=== PATIENT | female | born 1970 | race Caucasian/White ===

== ENCOUNTER 2017-12-01 14:59 | Emergency (ER) | payer MEDICARE, OTHER ==
[2017-12-01] MEDS ORDERED: MECLIZINE HCL 25 MG TABLET PO ONE (15:24)
[2017-12-01] MEDS ORDERED: MECLIZINE HCL 25 MG TABLET ONE (15:37)
[2017-12-01 15:42] LABS: Hematocrit 40.2 % (37.0-47.0); Hemoglobin 13.1 gm/dL (12.5-16.0); Mean Cell Volume 86.5 fl (78-100); Mean Corpuscular Hemoglobin 28.2 pg (27-31); Mean Corpuscular Hgb Conc 32.6 g/dl (32-36); Mean Platelet Volume 11.6 fl (6.0-9.5); Neutrophil # 8.6 K/mm3 (1.3-6.0); Neutrophil % 66.5 % (42-75.0); Platelet Count 334 K/mm3 (150-450); Red Blood Count 4.65 M/mm3 (4.2-5.4); Red Cell Distribution Width 13.7 % (11.5-14.0); White Blood Count 12.9 K/mm3 (4.0-10.5)
[2017-12-01 15:59] LABS: ALT 16 U/L (19-67); AST 14 U/L (0-48); Albumin * 2.8 gm/dl (3.4-5.0); Alkaline Phosphatase * 185 U/L (50-170); Anion Gap 8.9 mmol/L (6.8-13.8); BUN/Creatinine Ratio 15.8 (9.0-21.6); Bilirubin, Total 0.2 mg/dL (0.0-1.1); Blood Urea Nitrogen 12 mg/dL (3-23); Ca. Corrected For Albumin 8.8 mg/dL (8.4-10.2); Calcium * 8.2 mg/dL (7.9-10.9); Carbon Dioxide 28.1 mmol/L (24-32.6); Chloride 100 mmol/L (97-106); Glucose * 270 mg/dL (70-110); Sodium 133 mmol/L (132-142); Total Protein 7.2 gm/dL (6.2-8.2); Troponin I Less than 0.017 ng/ml (0.00-0.10)
[2017-12-01 16:16] VITALS: BP 129/69
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
== END 2017-12-01 16:23 | disposition home or self-care (01) ==
LOC: ER 14:59
DX: H81.12 Benign paroxysmal vertigo, left ear (principal); F17.200 Nicotine dependence, unspecified, uncomplicated; R40.2410 Glasgow coma scale score 13-15, unspecified time